=== PATIENT | male | born 2000 | race Caucasian/White ===

== ENCOUNTER 2023-03-18 18:40 | Emergency (ER) | payer OTHER ==
[~2023-03-18] VITALS: Ht 175 cm; Wt 99.7 kg
--- NOTE | 2023-03-18 19:04 | ED Lower Extremity ---
General Chief Complaint: Lower Extremity Stated Complaint: LT ANKLE INJ, SWELLING, BRUSING Nursing Triage Note: stepped out of a truck, states he rolled his left ankle. Source: patient Exam Limitations: no limitations (EMERITA LIU) History of Present Illness Date Seen by Provider: Mar 18, 2023 Time Seen by Provider: 19:02 Initial Comments Patient is a 23-year-old male who presents ED with left ankle pain. Patient st ates he was stepping on the back of a truck this morning rolled his left ankle. Since then he has been having pain and discomfort with walking. Noted bruising and swelling. Pain is worse with any type of movement. Denies any distal numbness and tingling. History of previous ankle sprains in the past. Denies distal numbness and tingling, nausea vomiting, diarrhea, calf pain, foot pain. Denies taking anything for pain. (EMERITA LIU) Allergies and Home Medications Patient Home Medication List Home Medication List Reviewed: Yes (EMERITA LIU) Review of Systems Constitutional: No chills, No diaphoresis, No malaise, No weakness EENTM: No ear pain, No blurred vision, No double vision Respiratory: No cough, No dyspnea on exertion Cardiovascular: No chest pain Gastrointestinal: No abdominal pain, No diarrhea, No nausea, No vomiting Genitourinary: No decreased output, No discharge Musculoskeletal: No back pain; joint pain, joint swelling, muscle pain Skin: change in color (EMERITA LIU) All Other Systems Reviewed Negative Unless Noted: Yes (EMERITA LIU) Past Lepqnjf-Tcquce-Arssmx Hx Patient Social History Tobacco Use?: No Use of E-Cig and/or Vaping dev: No Substance use?: No Alcohol Use?: No Pt feels they are or have been: No (EMERITA LIU) Physical Exam Vital Signs Vital Signs - First Documented 03/18/23 18:45 Temp 36.7 Pulse 82 Resp 19 B/P (MAP) 161/94 (116) Pulse Ox 97 O2 Delivery Room Air (MYAH BREWSETR DO) Vital Signs Capillary Refill : (EMERITA LIU) Height, Weight, BMI Height: '" Weight: lbs. oz. kg; 32.00 BMI Method: General Appearance: WD/WN, no apparent distress HEENT: PERRL/EOMI, normal ENT inspection, TMs normal, pharynx normal Neck: non-tender, full range of motion, supple Cardiovascular: regular rate, rhythm, no edema, no gallop, no JVD Respiratory: chest non-tender, lungs clear, normal breath sounds, no respiratory distress, no accessory muscle use Gastrointestinal: normal bowel sounds, non tender, soft Back: normal inspection, no CVA tenderness Knees: bilateral knee non-tender, bilateral knee normal inspection, bilateral knee normal range of motion, bilateral knee no evidence of injury Ankles: left ankle pain, left ankle soft tissue tenderness, left ankle swelling Feet: bilateral foot non-tender, bilateral foot normal inspection, bilateral foot normal range of motion, bilateral foot no evidence of injury Neurologic/Psychiatric: 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 Swelling and bruising noted.) (EMERITA ILU) Progress/Results/Core Measures Results/Orders Vital Signs/I&O 03/18/23 03/18/23 18:45 19:29 Temp 36.7 Pulse 82 82 Resp 19 19 B/P (MAP) 161/94 (116) 161/94 Pulse Ox 97 97 O2 Delivery Room Air Room Air (NEY,MYAH K DO) Blood Pressure Mean: 116 Departure Communication (PCP) Injury to left ankle. Swelling and tenderness to the left lateral malleolus with bruising. Neurovascular intact. No foot tenderness. X-ray was obtained which did not note any acute fracture. Discussed these results with patient. Concern for an ankle sprain. Able to stand and bear weight. At this time ice, elevate alternating Tylenol ibuprofen. Recommend a brace for comfort and support. Provided work note. Orthopedic follow-up in 7 to 10 days if pain worsens or progress. Provided range of motion exercises. Return precaution wer e discussed. (EMERITA LIU) Impression Primary Impression: Ankle sprain Disposition: 01 HOME, SELF-CARE Condition: Stable Departure-Patient Inst. Decision time for Depature: 19:16 (EMERITA LIU) Referrals: AMANDA MARLEY MD (PCP) Primary Care Physician BILLY WATERMAN MD Patient Instructions: Ankle sprain Work/School Note: Work Release Form Date Seen in the Emergency Department: Mar 18, 2023 Return to Work: Mar 21, 2023 ATTENDING PHYSICIAN NOTE: I WAS PHYSICALLY PRESENT ER PHYSICIAN, BUT I WAS NOT INVOLVED IN ANY DECISION MAKING OR ANY CARE OF THIS PATIENT, AND I AM NOT COLLABORATING PHYSICIAN. (MYAH BREWSTER DO) EMERITA LIU Mar 18, 2023 19:04 MYAH BREWSTER DO Mar 18, 2023 22:30
--- NOTE | 2023-03-18 19:14 | Diagnostic Imaging Report ---
ANKLE, LEFT, 3 VIEWS COMPARISON: None available. INDICATION: Lateral ankle pain TECHNIQUE: Non-weight bearing AP, oblique, and lateral views. FINDINGS: No fracture or traumatic malalignment. No osteochondral lesion of the talar dome. Soft tissue swelling the lateral aspect ankle. IMPRESSION: 1. No acute fracture or traumatic malalignment. Dictated by: Dictated on workstation # [id number]
[2023-03-18 19:29] VITALS: BP 161/94
== END 2023-03-18 19:29 | disposition home or self-care (01) ==
LOC: ER 18:46
DX: S93.402A Sprain of unspecified ligament of left ankle, initial encounter (principal); X50.1XXA Overexertion from prolonged static or awkward postures, initial encounter
CPT/HCPCS: 73610